=== PATIENT | female | born 1975 | race Caucasian/White ===

== ENCOUNTER 2016-09-11 16:13 | Emergency (ER) | payer OTHER ==
[~2016-09-11] VITALS: Ht 172.7 cm; Wt 96.2 kg
[~2016-09-11 16:13] MED LIST: AMBIEN5 MG PO; ASPIR-LOW81 MG PO; ATARAX,VISTARIL25 MG PO; BACLOFEN20 MG PO; BENTYL10 MG PO; CIPRO500 MG PO; CITALOPRAM HBR20 MG PO; Ecotrin PO; FLAGYL500 MG PO; GLUCOPHAGE500 MG PO; HYDROCHLOROTH12.5 M3 PO; HYDROXYZINE PAM25 MG PO; HYDROXYZINE PAM50 MG PO; INVOKANA100 MG PO; JANUVIA100 MG PO; JANUVIA25 M1 PO; LISINOPRIL5 MG PO; LO-DOSE ASPIRIN81 M1 PO; LO-DOSE ASPIRIN81 M2 PO; Lopressor PO; METFORMIN HCL500 MG PO; MOTRIN600 MG PO; NICOTINE PATCH1 EAC2 TD; NOHOMEMEDS; PERCOCET 5/31 TABLET PO; PRAVACHOL40 MG PO; PRAVASTATIN SOD40 MG PO; Proventil,Ventolin H IH; TRAZODONE HCL100 MG PO; TYLENOL EXTRA500 MG PO; Vitamin D, Drisdol PO; ZOFRAN4 MG PO; ZOLPIDEM TARTRAT5 MG PO
[2016-09-11] MEDS ORDERED: LEVEMIR FL100 UNIT/1 SC (18:02)
[2016-09-11 18:22] LABS: ADD MIUA? YES; BILIRUBIN NEGATIVE; BLOOD TRACE; COLOR YELLOW ((YELLOW)); GLUCOSE (STRIP) NEGATIVE; KETONES 15; LEUKOCYTES MODERATE; PROTEIN (STRIP) NEGATIVE; SPECIFIC GRAVITY 1.018 (1.000-1.030); UROBILINOGEN 0.2 MG/DL (0.2-1.0)
[2016-09-11] MEDS ORDERED: BACTRIM,SEPT1 TABLET PO (18:30)
[2016-09-11] MEDS ORDERED: PYRIDIUM200 MG PO (18:30)
[2016-09-11 18:46] VITALS: BP 157/97
[2016-09-11 18:55] LABS: EPITHELIAL CELLS 1+; MUCUS NONE SEEN; RED BLOOD CELLS RARE /HPF (0-5)
[2016-09-11 18:56] LABS: BACTERIA 3+; CASTS NONE SEEN /LPF; CRYSTALS NONE SEEN; NITRITE POSITIVE; UCUL ADDED? YES
== END 2016-09-11 18:46 | disposition home or self-care (01) ==
LOC: EME 16:13
DX: N30.00 Acute cystitis without hematuria (principal); E11.9 Type 2 diabetes mellitus without complications; F17.200 Nicotine dependence, unspecified, uncomplicated; Z86.73 Personal history of transient ischemic attack (TIA), and cerebral infarction without residual deficits
CPT/HCPCS: 81003; 87077; 87086; 87186; 99281; 99283

== ENCOUNTER 2017-04-17 18:00 | Emergency (ER) | payer OTHER ==
[~2017-04-17] VITALS: Ht 172.7 cm; Wt 83.8 kg
[~2017-04-17 18:00] MED LIST changes: +BACTRIM,SEPT1 TABLET PO; +LEVEMIR FL100 UNIT/1 SC; +PYRIDIUM200 MG PO
[2017-04-17 19:34] LABS: CHLORIDE 106 mEq/L (99-109); POTASSIUM 3.9 mEq/L (3.7-5.4); SODIUM 137 mEq/L (136-147)
[2017-04-17 19:35] LABS: GLUCOSE 104 mg/dL (70-99)
[2017-04-17 19:37] LABS: ANION GAP 9 MEQ/L (2-14)
[2017-04-17 19:39] LABS: GFR ESTIMATE (CALCULATED) > 59 mL/min/
[2017-04-17 19:40] LABS: UREA NITROGEN (BUN) 18 mg/dL (9-23)
[2017-04-17 21:19] LABS: CREATINE KINASE 94 IU/L (1-294)
[2017-04-17] MEDS ORDERED: NORCO 7.5/321 TABLET PO (21:27)
[2017-04-17] MEDS ORDERED: INDOCIN50 MG PO (21:27)
[2017-04-17] MEDS ORDERED: VALIUM5 MG PO (21:28)
[2017-04-17 21:38] VITALS: BP 135/69
== END 2017-04-17 21:44 | disposition home or self-care (01) ==
LOC: EME 18:00
PROVIDERS: Physician Assistant
DX: S76.112A Strain of left quadriceps muscle, fascia and tendon, initial encounter (principal); M70.62 Trochanteric bursitis, left hip; F17.200 Nicotine dependence, unspecified, uncomplicated
CPT/HCPCS: 80048; 82550; 99281; 99284

== ENCOUNTER 2017-07-30 19:08 | Observation (INO) | payer OTHER ==
[~2017-07-30] VITALS: Ht 172.7 cm; Wt 87.4 kg
[~2017-07-30 19:08] MED LIST changes: +INDOCIN50 MG PO; +NORCO 7.5/321 TABLET PO; +VALIUM5 MG PO
[2017-07-30 20:16] LABS: HEMATOCRIT 38.1 % (36.0-46.0); MCHC 33.6 G/DL (30.0-36.0); MCV 89.2 FL (83-99); MEAN PLAT.VOLUME 12.5 uM^3 (9.5-12.4); PLATELET COUNT 192 K/uL (156-360); RBC DIS.WIDTH-CV 13.2 % (11.8-14.6); RBC DIS.WIDTH-SD 43.4 % (39-53); RED BLOOD COUNT 4.27 M/uL (3.80-5.20); WHITE BLOOD COUNT 10.1 K/uL (4.1-10.2)
[2017-07-30 20:28] LABS: CHLORIDE 107 mEq/L (99-109); POTASSIUM 3.9 mEq/L (3.7-5.4); SODIUM 141 mEq/L (136-147)
[2017-07-30 20:30] LABS: GLUCOSE 116 mg/dL (70-99)
[2017-07-30 20:31] LABS: ANION GAP 11 MEQ/L (2-14)
[2017-07-30 20:32] LABS: ADD MIUA? YES; BILIRUBIN NEGATIVE; BLOOD MODERATE; COLOR STRAW ((YELLOW)); GLUCOSE (STRIP) NEGATIVE; KETONES NEGATIVE; LEUKOCYTES NEGATIVE; NITRITE NEGATIVE; PROTEIN (STRIP) NEGATIVE; SPECIFIC GRAVITY 1.008 (1.000-1.030); UROBILINOGEN 0.2 MG/DL (0.2-1.0)
[2017-07-30 20:33] LABS: GFR ESTIMATE (CALCULATED) > 59 mL/min/
[2017-07-30 20:34] LABS: UREA NITROGEN (BUN) 15 mg/dL (9-23)
[2017-07-30 20:38] LABS: BACTERIA NONE SEEN /HPF; EPITHELIAL CELLS RARE /HPF; MUCUS NONE SEEN /LPF; UCUL ADDED? NO; WHITE BLOOD CELLS 0-5 /HPF (0-5)
[2017-07-31 01:08] VITALS: BP 132/82
[2017-07-31] MEDS ORDERED: NEURONTIN300 MG PO (01:30)
[2017-07-31 04:36] VITALS: BP 138/66
[2017-07-31 06:04] LABS: HDL CHOLESTEROL 41 MG/DL (Desirable>=50); LDL CHOLESTEROL 83 mg/dL (Desirable<100); NON-HDL CHOLESTEROL 112 mg/dL (Desirable<160); TOTAL CHOLESTEROL 153 mg/dL (Desirable<200); TRIGLYCERIDES 144 MG/DL (Normal: <150)
[2017-07-31 06:58] LABS: Estimated Average Glucose 146 mg/dL (70-123); HEMOGLOBIN A1c (GLYCOHEMOGLOB) 6.7 % HGB (Below 5.7)
[2017-07-31 08:49] VITALS: BP 149/79
[2017-07-31 12:20] VITALS: BP 135/71
[2017-07-31] MEDS ORDERED: BACLOFEN10 MG PO (12:41)
== END 2017-07-31 14:31 | disposition home or self-care (01) ==
LOC: EME 19:08 → ENRESERV 22:44 → EDOF 22:44 → ENRESERV 23:08 → 5WEST 07-31 01:01 → ENPENDDIS 07-31 13:17 → 5WEST 07-31 14:31
PROVIDERS: Emergency Medicine; Physician Assistant
DX: R20.0 Anesthesia of skin (principal); R20.2 Paresthesia of skin; F17.210 Nicotine dependence, cigarettes, uncomplicated; M62.838 Other muscle spasm; E11.40 Type 2 diabetes mellitus with diabetic neuropathy, unspecified; Z86.73 Personal history of transient ischemic attack (TIA), and cerebral infarction without residual deficits; Z90.49 Acquired absence of other specified parts of digestive tract; Z82.49 Family history of ischemic heart disease and other diseases of the circulatory system; Z82.0 Family history of epilepsy and other diseases of the nervous system; Z83.3 Family history of diabetes mellitus; Z83.49 Family history of other endocrine, nutritional and metabolic diseases
CPT/HCPCS: 70450; 70551; 71020; 72141; 80048; 80061; 81003; 83036; 85027; 93880; 93970; 99281; 99285; G0378